=== PATIENT | male | born 1970 | race African-American/Black ===

== ENCOUNTER 2019-04-12 15:13 | Inpatient (IN) | payer OTHER ==
[2019-04-12 18:19] VITALS: BMI 24.5
--- NOTE | 2019-04-12 20:35 | HP ---
CIWA Score Nausea/Vomitin Muscle Tremors: 4-Moderate,w/Arms Extend Anxiety: 1-Mildly Anxious Agitation: 4-Moderately Restless Paroxysmal Sweats: 3 (Increased facial mositure) Orientation: 1-Uncertain about Date Tacttile Disturbances: 0-None Auditory Disturbances: 0-None Visual Disturbances: 0-None Headache: 2-Mild CIWA-Ar Total Score: 18 - Admission Criteria OASAS Guidelines: Admission for Medically Managed Detox: Requires at least one of the followin. CIWA greater than 12 2. Seizures within the past 24 hours 3. Delirium tremens within the past 24 hours 4. Hallucinations within the past 24 hours 5. Acute intervention needed for co occurring medical disorder 6. Acute intervention needed for co occurring psychiatric disorder 7. Severe withdrawal that cannot be handled at a lower level of care (continued vomiting, continued diarrhea, abnormal vital signs) requiring intravenous medication and/or fluids 8. Patient presents the following: CIWA greater than 12 Admission Criteria Met: Admission criteria met Admitting History and Physical - Smoking History Smoking history: Current every day smoker Have you smoked in the past 12 months: Yes Aproximately how many cigarettes per day: 20 - Alcohol/Substance Use Hx Alcohol Use: Yes Admission ROS S - [facility] Chief Complaint: "I need detox for alcohol and other drugs I'm withdrawing from" Allergies/Adverse Reactions: Allergies Allergy/AdvReac Type Severity Reaction Status Date / Time pork derived (porcine) Allergy Mild Vomiting Verified 04/12/19 18:07 No Known Drug Allergies Allergy Verified 04/12/19 18:07 NKDA Allergy Uncoded 04/12/19 18:07 History of Present Illness: 49 yo presents w/ alcohol withdrawal symptoms seeking detox. Interested in rehab Longest sobriety [id number]. Heroin use since age 19. Was on Suboxone and relapsed in December. Last used on . Started back on Suboxone Program. Current use 8 mg TID. last used 04/11/19. Outsole Caser is Cindy. [facility]. Alcohol use since age 12. 3-4 24 oz cans beer every night and 1 pint liquor every 1-2 days. Last drink this a.m. Nicotine use since age 12. Smokes 5-10 cig/day. Hx: 2 overdoses. Last 1 1/2 yrs ago. Last blackout 02/2019. Denies hx seizures. PMHx: Picks skin; Arthritis (L) foot; Migraine SHEIKH; MHHx: Depression, Anxiety; Bipolar; Schizoaffective. Taking meds. Sees a MH Provider. Last saw MH Provider 1 week ago. Denies thoughts of harming self or others. SHx: DESTIN- SRO; Unemployed. Legal issues (Family law). Has a Probation Office. Patient Name: Johnnie Clay Date: 1970 Address: [address] [place] [address] Sex: Male Rx Written Rx Dispensed Drug Quantity Days Supply Prescriber Name 12/25/2018 12/26/2018 suboxone 8 mg-2 mg sl film 45 15 Markell Isaac) 12/06/2018 12/11/2018 suboxone 8 mg-2 mg sl film 24 8 Markell Isaac) Patient Name: Johnnie Clay Date: 1970 Address: [address] [place] [address] Sex: Male Rx Written Rx Dispensed Drug Quantity Days Supply Prescriber Name 11/22/2018 11/22/2018 buprenorphine-naloxone 8-2 mg sl film 45 15 Markell Isaac) 10/05/2018 10/05/2018 buprenorphine-naloxone 8-2 mg sl film 90 30 Markell Isaac) Patient Name: Johnnie Clay Date: 1970 Address: [address] [place] [id number] Sex: Male Rx Written Rx Dispensed Drug Quantity Days Supply Prescriber Name 11/09/2018 11/09/2018 buprenorphine-naloxone 8-2 mg sl film 15 5 Lakshmi Milner Patient Name: Johnnie Clay Date: 1970 Address: [address] [place] [id number] Sex: Male Rx Written Rx Dispensed Drug Quantity Days Supply Prescriber Name 09/05/2018 09/05/2018 buprenorphine-naloxone 8-2 mg sl film 90 30 Hossny, Juani 08/07/2018 08/09/2018 suboxone 8 mg-2 mg sl film 90 30 Hossny, Juani Patient Name: Johnnie Clay Date: 1970 Address: [address] [place] [id number] Sex: Male Rx Written Rx Dispensed Drug Quantity Days Supply Prescriber Name 07/09/2018 07/10/2018 suboxone 8 mg-2 mg sl film 90 30 Hossny, Juani 06/05/2018 06/05/2018 suboxone 8 mg-2 mg sl film 90 30 Hossny, Juani Search Terms: Johnnie Clay, 1970 Search Date: 04/12/2019 08:29:43 PM States Searched: [place], [place], [place], [place], [place], [place], [place], [place] The Drug Utilization Report below displays the controlled substance prescriptions, if any, that were dispensed in the indicated state(s). The information displayed on this report is compiled from requests submitted to other states' PMPs, and accurately reflects the information as returned by them. Blank palacios indicate data not provided by other state. This report was requested by: Roxanna Dial | Reference #: [id number] There are no results for the search terms that you entered. Exam Limitations: No Limitations - Ebola screening Have you traveled outside of the country in the last 21 days: No Have you had contact with anyone from an Ebola affected area: No Have you been sick,other than usual withdrawal symptoms: No Do you have a fever: No - Review of Systems Constitutional: Chills, Diaphoresis, Changes in sleep (Difficulty falling and staying asleep), Unintentional Wgt. Loss EENT: reports: Blurred Vision, Other (Jaw pain (L) mandible x 2 days un related to trauma) Respiratory: reports: Shortness of Breath (r/t withdrawals) Cardiac: reports: No Symptoms Reported GI: reports: Blood Streaked Bowels (Blood streaked bowels 2-3 x/wk. States r/t straining.), Constipated (Intermittent constipation), Diarrhea ([place] w/ streaks of blood earlier), Nausea (earlier), Vomiting (earlier) : reports: Urgency (Urinary urge), Other (Dribble) Musculoskeletal: reports: Back Pain (none at this time) Integumentary: reports: Lesions ( Picks skin most of life resulting in open sores) Neuro: reports: Headache (Frontal pressure headache), Tremors Endocrine: reports: Increased Thirst Hematology: reports: No Symptoms Reported Psychiatric: reports: Mood/Affect Appropiate, Orientated x3 (Missed by 1 day), Anxious, Depressed Patient History - Patient Medical History Hx Anemia: Yes (NOT IN TREATMENT) Hx Asthma: No Hx Chronic Obstructive Pulmonary Disease (COPD): No Hx Cancer: No Hx Cardiac Disorders: No Hx Congestive Heart Failure: No Hx Hypertension: No Hx Hypercholesterolemia: No Hx Pacemaker: No HX Cerebrovascular Accident: No Hx Seizures: No Hx Dementia: No Hx Diabetes: No Hx Gastrointestinal Disorders: Yes (ACID REFLUX..NEXIUM) Hx Liver Disease: No Hx Genitourinary Disorders: No Hx Sexually Transmitted Disorders: No Hx Renal Disease (ESRD): No Hx Thyroid Disease: No Hx Human Immunodeficiency Virus (HIV): No (NEGATIVE HX) Hx Hepatitis C: No Hx Depression: Yes (ON WELBUTRIN AND TRAZODONE) Hx Suicide Attempt: No (DENIES) Hx Bipolar Disorder: No Hx Schizophrenia: Yes (schizoaffective) - Patient Surgical History Past Surgical History: No Hx Neurologic Surgery: No Hx Cataract Extraction: No Hx Cardiac Surgery: No Hx Lung Surgery: No Hx Breast Surgery: No Hx Breast Biopsy: No Hx Abdominal Surgery: No Hx Appendectomy: No Hx Cholecystectomy: No Hx Genitourinary Surgery: No Hx Section: No Hx Orthopedic Surgery: No Anesthesia Reaction: No - PPD History Previous Implant?: Yes Documented Results: Negative w/proof Implanted On Prior R Admission?: Yes Date: 08/27/14 Results: 0 mm PPD to be Administered?: No - Smoking Cessation Smoking history: Current every day smoker Have you smoked in the past 12 months: Yes Aproximately how many cigarettes per day: 10 Hx Chewing Tobacco Use: No Initiated information on smoking cessation: Yes 'Breaking Loose' booklet given: 04/12/19 - Substance & Tx. History Hx Alcohol Use: Yes Hx Substance Use: Yes Substance Use Type: Alcohol, Cocaine, Heroin, Opiates Hx Substance Use Treatment: Yes (detox, rehab, Suboxone) - Substances abused Heroin Substance route: Injection Frequency: Daily Amount used: 1 to 1 and a half bundles Age of first use: 19 Date of last use: 04/07/19 Alcohol Substance route: Oral Amount used: 4 of 24 oz of beer/ 1 to i and a half pint of gin/vodka/whisky Age of first use: 12 Date of last use: 04/12/19 Cocaine Substance route: Inhalation Frequency: 3-6 times per week Amount used: ten to 20 dime bags Age of first use: 16 Date of last use: 04/11/19 Other Other (specify): Percocet. Substance route: Oral Frequency: 1-2 times per week Amount used: 2 tablets Age of first use: 39 Date of last use: 04/06/19 Admission Physical Exam [facility] - Vital Signs Vital Signs: Vital Signs - 24 hr 04/12/19 18:07 Temperature 97.6 F Pulse Rate 76 Respiratory 16 Rate Blood Pressure 135/84 - Physical General Appearance: Yes: Nourished, Mild Distress, Tremorous, Sweating ( Increased facial mositure) HEENTM: Yes: EOMI, Hearing grossly Normal, Normocephalic, Normal Voice, HENNY, Pharynx Normal Respiratory: Yes: Lungs Clear (Pulse Ox = 98 %), Normal Breath Sounds, No Respiratory Distress Neck: Yes: No masses,lesions,Nodules, Supple Breast: Yes: Breast Exam Deferred Cardiology: Yes: Regular Rhythm, Regular Rate, S1, S2 Abdominal: Yes: Flat, Soft, Increased Bowel Sounds, Tenderness (Mid-quad tenderness upon palpation. No guarding. No-rebound tenderness.) Genitourinary: Yes: Within Normal Limits Back: Yes: Normal Inspection Musculoskeletal: Yes: full range of Motion, Gait Steady Extremities: Yes: Normal Capillary Refill (Peripheral pulses +), Tremors Neurological: Yes: precinct police captain II-XII NML intact, Alert, Motor Strength 5/5, Normal Response Integumentary: Yes: Normal Color, Warm, Diaphoresis (Increased facial mositure) , Rash (dry, cracked, flaky skin between toes), Other (Old and new scratched lesions scattered over entire body. Fresher lesions noted on (R)and (L) shoulder, forehead, and (R) calf.) Lymphatic: Yes: Within Normal Limits - Diagnostic (1) Opioid dependence on agonist therapy Current Visit: Yes Status: Chronic Comment: On Suboxone (2) Alcohol dependence with withdrawal, uncomplicated Current Visit: Yes Status: Acute (3) Cocaine dependence, uncomplicated Current Visit: Yes Status: Chronic (4) Dermatillomania Current Visit: Yes Status: Chronic Comment: With multiple old and new skin lesions (5) GERD (gastroesophageal reflux disease) Current Visit: Yes Status: Chronic Qualifiers: Esophagitis presence: esophagitis presence not specified Qualified Code(s) : K21.9 - Gastro-esophageal reflux disease without esophagitis (6) Nicotine dependence Current Visit: Yes Status: Chronic Qualifiers: Nicotine product type: cigarettes Substance use status: uncomplicated Qualified Code(s): F17.210 - Nicotine dependence, cigarettes, uncomplicated Cleared for Admission BHS - Detox or Rehab S Level of Care: Medically Managed Detox Regimen/Protocol: Librium Claeared for Rehab Admission: No Breathalyzer - Breathalyzer Breathalyzer: 0 Urine Drug Screen - Test Device Lot number: [id number] Expiration date: 11/23/20 - Control Is test valid?: Yes - Results Drug screen NEGATIVE: Yes Urine drug screen results: BZO-Benzodiazepines, BUP-Suboxone Inpatient Rehab Admission - Rehab Decision to Admit Inpatient rehab admission?: No
[2019-04-12] MEDS ORDERED: METHOCARBAMOL 500 MG TABLET PO PRN (21:16)
[2019-04-12] MEDS ORDERED: MAGNESIUM HYDROX 2400MG/30ML ORAL SUSPENSION 30 ML CUP PO PRN (21:16)
[2019-04-12] MEDS ORDERED: MENTHOL/PHENOL 1 EACH UD MM PRN (21:16)
[2019-04-12] MEDS ORDERED: IBUPROFEN 400 MG TABLET (FP) PO PRN (21:16)
[2019-04-12] MEDS ORDERED: ACETAMINOPHEN 325 MG TABLET (FP) PO PRN ×2 (21:16)
[2019-04-12] MEDS ORDERED: chlordiazePOXIDE HCL 10 MG CAPSULE PO PRN (21:16)
[2019-04-12] MEDS ORDERED: NICOTINE POLACRILEX 2 MG GUM BUC PRN (21:16)
[2019-04-12] MEDS ORDERED: MAGNESIUM CITRATE 300 ML BOTTLE PO PRN (21:16)
[2019-04-12] MEDS ORDERED: MAG HYDROX/AL HYDROX/SIMETH 30 ML UNIT-DOSE CUP PO PRN (21:16)
[2019-04-12] MEDS ORDERED: BISMUTH SUBSALICYLATE 524 MG/30 ML UD PO PRN (21:16)
[2019-04-12] MEDS: TOLNAFTATE 1% CREAM 15 GM TUBE TP SCH (22:44)
[2019-04-12] MEDS: THIAMINE HCL 100 MG TABLET (FP) PO SCH (22:47)
[2019-04-12] MEDS: chlordiazePOXIDE HCL 25 MG CAPSULE PO SCH (22:47)
[2019-04-12] MEDS: MELATONIN 5 MG TABLETS PO PRN (22:47)
[2019-04-12] MEDS: BACITRACIN 15 GM TUBE TOPICAL OINTMENT TP SCH (22:50)
[2019-04-13] MEDS: BUPRENORPHINE/NALOXONE 8 MG/2 MG FILM PACKET SL SCH ×3 (05:26→22:08)
[2019-04-13] MEDS: chlordiazePOXIDE HCL 25 MG CAPSULE PO SCH ×3 (05:26→22:07)
[2019-04-13 10:16] LABS: ALBUMIN 3.6 g/dl (3.4-5.0); BILIRUBIN,TOTAL 0.3 mg/dL (0.2-1); BLOOD UREA NITROGEN 10.6 mg/dL (7-18); CALCIUM 8.4 mg/dL (8.5-10.1); POTASSIUM 3.9 mmol/L (3.5-5.1); TOT PROT 6.6 g/dl (6.4-8.2)
[2019-04-13] MEDS: TOLNAFTATE 1% CREAM 15 GM TUBE TP SCH ×2 (10:30→22:08)
[2019-04-13] MEDS: PRENATAL VITAMINS W/ FOLIC ACID TABLET (FP) PO SCH (10:31)
[2019-04-13] MEDS: NICOTINE 14 MG/24 HOURS TOPICAL PATCH TD SCH (10:32)
[2019-04-13] MEDS: BACITRACIN 15 GM TUBE TOPICAL OINTMENT TP SCH ×2 (10:33→22:08)
[2019-04-13 10:39] LABS: HEMATOCRIT 37.2 % (35.4-49); HEMOGLOBIN 12.9 GM/dL (11.7-16.9); MCH 33.3 pg (25.7-33.7); MCHC 34.5 g/dl (32.0-35.9); MEAN CELL VOLUME 96.2 fl (80-96); MEAN PLT VOLUME 8.1 fl (7.5-11.1); PLATELET COUNT 214 K/MM3 (134-434); RBC 3.87 M/mm3 (4.00-5.60); RDW 14.2 % (11.9-15.9); WHITE BLOOD COUNT 4.8 K/mm3 (4.0-10.0)
--- NOTE | 2019-04-13 11:31 | PN ---
S CIWA - CIWA Score Nausea/Vomitin-No Nausea/No Vomiting Muscle Tremors: None Anxiety: 3 Agitation: 2 Paroxysmal Sweats: 3 Orientation: 0-Oriented Tacttile Disturbances: 0-None Auditory Disturbances: 0-None Visual Disturbances: 0-None Headache: 2-Mild CIWA-Ar Total Score: 10 S Progress Note (SOAP) Subjective: c/o anxiety, sweats, headache, and muscle pain. Objective: 04/13/19 11:28 Vital Signs 04/13/19 06:00 Temperature 97.7 F Pulse Rate 66 Respiratory 18 Rate Blood Pressure 105/55 L Lab Results WBC 4.8 K/mm3 (4.0-10.0) 04/13/19 08:00 RBC 3.87 M/mm3 (4.00-5.60) L 04/13/19 08:00 Hgb 12.9 GM/dL (11.7-16.9) 04/13/19 08:00 Hct 37.2 % (35.4-49) 04/13/19 08:00 MCV 96.2 fl (80-96) H 04/13/19 08:00 MCHC 34.5 g/dl (32.0-35.9) 04/13/19 08:00 RDW 14.2 % (11.9-15.9) 04/13/19 08:00 Plt Count 214 K/MM3 (134-434) 04/13/19 08:00 Sodium 141 mmol/L (136-145) 04/13/19 08:00 Potassium 3.9 mmol/L (3.5-5.1) 04/13/19 08:00 Chloride 105 mmol/L (98-107) 04/13/19 08:00 Carbon Dioxide 30 mmol/L (21-32) 04/13/19 08:00 Anion Gap 7 MMOL/L (8-16) L 04/13/19 08:00 BUN 10.6 mg/dL (7-18) 04/13/19 08:00 Creatinine 1.0 mg/dL (0.55-1.3) 04/13/19 08:00 Random Glucose 90 mg/dL (74-106) 04/13/19 08:00 Calcium 8.4 mg/dL (8.5-10.1) L 04/13/19 08:00 Labs noted. Assessment: 04/13/19 11:29 AOX3, in no acute respiratory distress. Full ROM, ambulating in the unit. Withdrawal symptoms. Plan: continue detox.
--- NOTE | 2019-04-13 15:42 | CONSULT ---
[facility] Psychiatric Consult - Data Date of interview: 04/13/19 Admission source: [facility] Identifying data: Readmission to [facility] for this 49 y/o AA male self- referred for detoxification. ROSANNA issues : heroin, alcohol, nicotine. Interviewed at [address] [place] [address]., Patient is , a father of two, domiciled (SRO), unemployed and supported on welfare. Substance Abuse History: Smoking history: Current every day smoker. Have you smoked in the past 12 months: Yes. Aproximately how many cigarettes per day: 10. Hx Chewing Tobacco Use: No. Initiated information on smoking cessation: Yes. 'Breaking Loose' booklet given: 04/12/19. - Substance & Tx. History. Hx Alcohol Use: Yes. Hx Substance Use: Yes. Substance Use Type: Alcohol, Cocaine , Heroin, Opiates. Hx Substance Use Treatment: Yes (detox, rehab, Suboxone). - Substances abused. Heroin. Substance route: Injection. Frequency: Daily. Amount used: 1 to 1 and a half bundles. Age of first use: 19. Date of last use: 04/07/19. Alcohol. Substance route: Oral. Amount used: 4 of 24 oz of beer/ 1 to i and a half pint of gin/vodka/whisky. Age of first use: 12. Date of last use: 04/12/19. Cocaine. Substance route: Inhalation. Frequency: 3-6 times per week. Amount used: ten to 20 dime bags. Age of first use: 16. Date of last use: 04/11/19. Other. Other (specify): Percocet. Substance route: Oral. Frequency: 1-2 times per week. Amount used: 2 tablets. Age of first use: 39. Date of last use: 04/06/19 Medical History: Remarkable for GERD and anemia. Psychiatric History: Patient endorses a history of one psychiatric hospitalization in 1990 (while incarcerated). Reportedly diagnosed with Schizoaffective Disorder. Mr Clay is currently receiving psyciatric OPD care at the [facility] in [facility]. He indicates maintenance on a regimen of suboxone + depakote + sertraline. Patient denies history of suicide attempts. Physical/Sexual Abuse/Trauma History: Traumas : years of incarceration, of a younger brother (years ago), divorce and discord with ex- over personal matters. Additional Comment: Urine drug screen results: BZO-Benzodiazepines, BUP- Suboxone. Noted. Mental Status Exam - Mental Status Exam Alert and Oriented to: Time, Place, Person Cognitive Function: Good Patient Appearance: Well Groomed (covered with tattoos, needle tracks on forearms, facial abrasions, scabs; muscular built) Mood: Withdrawn, Anxious Affect: Mood Congruent, Constricted Patient Behavior: Fatigued Speech Pattern: Clear Voice Loudness: Normal Thought Process: Goal Oriented Thought Disorder: Not Present Hallucinations: Denies Suicidal Ideation: Denies Homicidal Ideation: Denies Insight/Judgement: Poor Sleep: Fair Appetite: Good Muscle strength/Tone: Normal Gait/Station: Normal Psychiatric Findings - Problem List ([place] 1, 2,3) (1) Alcohol dependence with withdrawal, uncomplicated Status: Acute (2) Cocaine dependence, uncomplicated Status: Chronic (3) Opioid dependence on agonist therapy Status: Chronic Comment: On Suboxone (4) Nicotine dependence Status: Chronic (5) Schizoaffective disorder Status: Chronic (6) Substance induced mood disorder Status: Chronic - Initial Treatment Plan Initial Treatment Plan: Psychoeducation. Sleep hygiene. Detoxification. AA/NA meetings. Medications : depakote 500 mg po bid + zoloft 100 mg po daily. Side effects/benefits of both drugs are discussed with the patient. Mr Clay is agreeable with this plan of care. Observation. Valproic acid level : pending.
[2019-04-13] MEDS: DIVALPROEX SODIUM 500 MG TABLET E.C. PO SCH (22:07)
[2019-04-13] MEDS: THIAMINE HCL 100 MG TABLET (FP) PO SCH (22:08)
[2019-04-13] MEDS: MELATONIN 5 MG TABLETS PO PRN (22:08)
[2019-04-14] MEDS: BUPRENORPHINE/NALOXONE 8 MG/2 MG FILM PACKET SL SCH ×3 (05:37→21:51)
[2019-04-14] MEDS: chlordiazePOXIDE 5 MG CAPSULE PO SCH ×3 (05:37→21:51)
[2019-04-14] MEDS: SERTRALINE HCL 50 MG TABLET (FP) PO SCH (10:12)
[2019-04-14] MEDS: DIVALPROEX SODIUM 500 MG TABLET E.C. PO SCH ×2 (10:12→21:51)
[2019-04-14] MEDS: PRENATAL VITAMINS W/ FOLIC ACID TABLET (FP) PO SCH (10:13)
[2019-04-14] MEDS: TOLNAFTATE 1% CREAM 15 GM TUBE TP SCH ×2 (10:13→21:52)
[2019-04-14] MEDS: NICOTINE 14 MG/24 HOURS TOPICAL PATCH TD SCH (10:15)
[2019-04-14] MEDS ORDERED: ONDANSETRON *ODT* 4 MG TABLET SL PRN (10:27)
[2019-04-14] MEDS: BACITRACIN 15 GM TUBE TOPICAL OINTMENT TP SCH ×2 (10:30→21:52)
[2019-04-14] MEDS: HYDROCORTISONE 1% TOPICAL CREAM 30 GM TUBE TP SCH ×2 (11:30→21:52)
--- NOTE | 2019-04-14 13:05 | PN ---
[facility] CIWA - CIWA Score Nausea/Vomitin-Mild Nausea/No Vomiting Muscle Tremors: 2 Anxiety: 2 Agitation: 2 Paroxysmal Sweats: 2 Orientation: 0-Oriented Tacttile Disturbances: 0-None Auditory Disturbances: 0-None Visual Disturbances: 0-None Headache: 0-None Present CIWA-Ar Total Score: 9 BHS Progress Note (SOAP) Subjective: Headache, chills, tremor, interrupted sleep, nausea. Patient c/o itchy skin which he picks at whenever he is anxious. Patient requesting cream for itchy skin and medication for nausea. Objective: 04/14/19 13:03 Last Vital Signs Temp Pulse Resp BP Pulse Ox 99.3 F 65 16 115/78 04/14/19 09:34 04/14/19 09:34 04/14/19 09:34 04/14/19 09:34 Laboratory Tests 04/13/19 04/13/19 04/13/19 08:00 08:00 08:00 WBC 4.8 RBC 3.87 L Hgb 12.9 Hct 37.2 MCV 96.2 H MCH 33.3 MCHC 34.5 RDW 14.2 Plt Count 214 MPV 8.1 Sodium 141 Potassium 3.9 Chloride 105 Carbon Dioxide 30 Anion Gap 7 L BUN 10.6 Creatinine 1.0 Est GFR (CKD-EPI)AfAm 101.26 Est GFR (CKD-EPI)NonAf 87.37 Random Glucose 90 Calcium 8.4 L Total Bilirubin 0.3 AST 25 ALT 40 Alkaline Phosphatase 97 Total Protein 6.6 Albumin 3.6 Valproic Acid 21.8 L RPR Titer 04/13/19 08:00 WBC RBC Hgb Hct MCV MCH MCHC RDW Plt Count MPV Sodium Potassium Chloride Carbon Dioxide Anion Gap BUN Creatinine Est GFR (CKD-EPI)AfAm Est GFR (CKD-EPI)NonAf Random Glucose Calcium Total Bilirubin AST ALT Alkaline Phosphatase Total Protein Albumin Valproic Acid RPR Titer Nonreactive Labs reviewed Assessment: 04/14/19 13:04 Withdrawal sxs Plan: Continue detox Encouraged PO water intake Dermatitis: (itchy skin and scar from pricking skin), hydrocortisone cream bid Nausea: zofran 4mg SL q8 hr prn
[2019-04-14] MEDS: THIAMINE HCL 100 MG TABLET (FP) PO SCH (21:51)
[2019-04-15] MEDS ORDERED: chlordiazePOXIDE HCL 10 MG CAPSULE PO PRN
[2019-04-15] MEDS: BUPRENORPHINE/NALOXONE 8 MG/2 MG FILM PACKET SL SCH ×3 (05:59→22:53)
[2019-04-15] MEDS: chlordiazePOXIDE HCL 10 MG CAPSULE PO SCH ×3 (05:59→21:52)
[2019-04-15] MEDS ORDERED: diphenhydrAMINE HCL 25 MG CAPSULE (FP) PO PRN (09:56)
[2019-04-15] MEDS: SERTRALINE HCL 50 MG TABLET (FP) PO SCH (10:42)
[2019-04-15] MEDS: DIVALPROEX SODIUM 500 MG TABLET E.C. PO SCH ×2 (10:43→22:51)
[2019-04-15] MEDS: HYDROCORTISONE 1% TOPICAL CREAM 30 GM TUBE TP SCH ×2 (10:43→22:52)
[2019-04-15] MEDS: PRENATAL VITAMINS W/ FOLIC ACID TABLET (FP) PO SCH (10:43)
[2019-04-15] MEDS: NICOTINE 14 MG/24 HOURS TOPICAL PATCH TD SCH (10:44)
[2019-04-15] MEDS: BACITRACIN 15 GM TUBE TOPICAL OINTMENT TP SCH ×2 (10:44→22:51)
[2019-04-15] MEDS: TOLNAFTATE 1% CREAM 15 GM TUBE TP SCH ×2 (10:46→22:53)
--- NOTE | 2019-04-15 11:52 | PN ---
S CIWA - CIWA Score Nausea/Vomitin-Mild Nausea/No Vomiting Muscle Tremors: 1-None Visible, but [place] Anxiety: 2 Agitation: 2 Paroxysmal Sweats: No Perspiration Orientation: 0-Oriented Tacttile Disturbances: 1-Very Mild Itch/Numbness Auditory Disturbances: 0-None Visual Disturbances: 0-None Headache: 2-Mild CIWA-Ar Total Score: 9 BHS Progress Note (SOAP) Subjective: alert,irritable,anxious,interrupted sleep,itching Objective: 04/15/19 11:52 Vital Signs Temperature 98 F 04/15/19 09:33 Pulse Rate 70 04/15/19 09:33 Respiratory Rate 18 04/15/19 09:33 Blood Pressure 131/64 04/15/19 09:33 O2 Sat by Pulse Oximetry (%) Assessment: 04/15/19 11:52 withdrawal symptom Plan: continue detox librium regimen,discharge in am,benadryl for itching
[2019-04-15] MEDS: THIAMINE HCL 100 MG TABLET (FP) PO SCH (22:51)
[2019-04-16] MEDS ORDERED: chlordiazePOXIDE HCL 10 MG CAPSULE PO ONE (05:00)
[2019-04-16] MEDS: BUPRENORPHINE/NALOXONE 8 MG/2 MG FILM PACKET SL SCH ×2 (06:50→14:53)
--- NOTE | 2019-04-16 09:25 | DS ---
[facility] Detox Discharge Summary Admission Date: 04/12/19 Discharge Date: 04/16/19 - History Present History: Alcohol Dependence, Cocaine Dependence, Opioid Dependence - Physical Exam Results Vital Signs: Vital Signs Temperature 98.1 F 04/16/19 06:26 Pulse Rate 74 04/16/19 06:26 Respiratory Rate 18 04/16/19 06:26 Blood Pressure 130/63 04/16/19 06:26 O2 Sat by Pulse Oximetry (%) Pertinent Admission Physical Exam Findings: pt arrived in withdrawals Vital Signs Temperature 98.1 F 04/16/19 06:26 Pulse Rate 74 04/16/19 06:26 Respiratory Rate 18 04/16/19 06:26 Blood Pressure 130/63 04/16/19 06:26 O2 Sat by Pulse Oximetry (%) Laboratory Tests 04/13/19 04/13/19 04/13/19 08:00 08:00 08:00 WBC 4.8 RBC 3.87 L Hgb 12.9 Hct 37.2 MCV 96.2 H MCH 33.3 MCHC 34.5 RDW 14.2 Plt Count 214 MPV 8.1 Sodium 141 Potassium 3.9 Chloride 105 Carbon Dioxide 30 Anion Gap 7 L BUN 10.6 Creatinine 1.0 Est GFR (CKD-EPI)AfAm 101.26 Est GFR (CKD-EPI)NonAf 87.37 Random Glucose 90 Calcium 8.4 L Total Bilirubin 0.3 AST 25 ALT 40 Alkaline Phosphatase 97 Total Protein 6.6 Albumin 3.6 Valproic Acid 21.8 L RPR Titer 04/13/19 08:00 WBC RBC Hgb Hct MCV MCH MCHC RDW Plt Count MPV Sodium Potassium Chloride Carbon Dioxide Anion Gap BUN Creatinine Est GFR (CKD-EPI)AfAm Est GFR (CKD-EPI)NonAf Random Glucose Calcium Total Bilirubin AST ALT Alkaline Phosphatase Total Protein Albumin Valproic Acid RPR Titer Nonreactive today pt is aaox3 ambulating no acute distress no s/s of withdrawals - Treatment Hospital Course: Detox Protocol Followed, Detoxed Safely, Responded well, Discharged Condition Good, Rehab Referral Accepted - Medication Discharge Medications: Ambulatory Orders Chlorpromazine [Thorazine -] 25 mg PO TID 04/12/19 Divalproex Sodium 1 tablet PO BID 04/12/19 Sertraline HCl 100 mg PO DAILY 04/12/19 - Diagnosis (1) Alcohol dependence with withdrawal, uncomplicated Current Visit: Yes Status: Chronic (2) Cocaine dependence, uncomplicated Current Visit: Yes Status: Chronic (3) Dermatillomania Current Visit: Yes Status: Chronic (4) GERD (gastroesophageal reflux disease) Current Visit: Yes Status: Chronic Qualifiers: Esophagitis presence: esophagitis presence not specified Qualified Code(s) : K21.9 - Gastro-esophageal reflux disease without esophagitis (5) Nicotine dependence Current Visit: Yes Status: Chronic Qualifiers: Nicotine product type: cigarettes Substance use status: uncomplicated Qualified Code(s): F17.210 - Nicotine dependence, cigarettes, uncomplicated (6) Schizoaffective disorder Current Visit: Yes Status: Chronic (7) Substance induced mood disorder Current Visit: Yes Status: Chronic (8) Cannabis dependence Current Visit: Yes Status: Chronic - AMA Did Patient Leave Against Medical Advice: No
[2019-04-16] MEDS: BACITRACIN 15 GM TUBE TOPICAL OINTMENT TP SCH (10:25)
[2019-04-16] MEDS: PRENATAL VITAMINS W/ FOLIC ACID TABLET (FP) PO SCH (11:08)
[2019-04-16] MEDS: SERTRALINE HCL 50 MG TABLET (FP) PO SCH (11:09)
[2019-04-16] MEDS: HYDROCORTISONE 1% TOPICAL CREAM 30 GM TUBE TP SCH (11:09)
[2019-04-16] MEDS: DIVALPROEX SODIUM 500 MG TABLET E.C. PO SCH (11:09)
[2019-04-16] MEDS: TOLNAFTATE 1% CREAM 15 GM TUBE TP SCH (11:10)
[2019-04-16] MEDS: NICOTINE 14 MG/24 HOURS TOPICAL PATCH TD SCH (11:10)
--- NOTE | 2019-04-16 13:35 | EKG ---
Test Reason : Blood Pressure : / mmHG Vent. Rate : 064 BPM Atrial Rate : 064 BPM P-R Int : 122 ms QRS Dur : 090 ms QT Int : 424 ms P-R-T Axes : 080 073 049 degrees QTc Int : 437 ms NORMAL SINUS RHYTHM NORMAL ECG NO PREVIOUS ECGS AVAILABLE Confirmed by MD Kami, Kings ([id number]) on 04/16/2019 1:34:49 PM Referred By: Confirmed By:Kings Mcclure MD
[2019-04-16 17:33] VITALS: BP 124/67; PULSE 74; TEMP 98.4
== END 2019-04-16 17:26 | disposition other institution (70) | DRG 773 ==
LOC: YASAS 15:13 → Y6N 21:36
PROVIDERS: ADMIT Allergy & Immunology; ATTEND Allergy & Immunology
PROC: HZ2ZZZZ Detoxification Services for Substance Abuse Treatment (ICD-10-PCS; principal; 2019-04-12)
DX: F10.230 Alcohol dependence with withdrawal, uncomplicated (principal); F11.20 Opioid dependence, uncomplicated; F14.20 Cocaine dependence, uncomplicated; F12.20 Cannabis dependence, uncomplicated; F17.210 Nicotine dependence, cigarettes, uncomplicated; F25.9 Schizoaffective disorder, unspecified; F19.24 Other psychoactive substance dependence with psychoactive substance-induced mood disorder; F42.4 Excoriation (skin-picking) disorder; K21.9 Gastro-esophageal reflux disease without esophagitis; Z91.018 Allergy to other foods; Z91.048 Other nonmedicinal substance allergy status
CPT/HCPCS: 36415; 80053; 80164; 85027; 86593; 93005; 93010

== ENCOUNTER 2019-04-16 17:51 | Inpatient (IN) | payer OTHER ==
[2019-04-16] MEDS ORDERED: P-EPHED 60MG/TRIPROLIDI 2.5MG TABLET PO PRN (18:57)
[2019-04-16] MEDS ORDERED: IBUPROFEN 400 MG TABLET (FP) PO PRN (18:57)
[2019-04-16] MEDS ORDERED: MAG HYDROX/AL HYDROX/SIMETH 30 ML UNIT-DOSE CUP PO PRN (18:57)
[2019-04-16] MEDS ORDERED: ACETAMINOPHEN 325 MG TABLET (FP) PO PRN (18:57)
[2019-04-16] MEDS ORDERED: MENTHOL/PHENOL 1 EACH UD MM PRN (18:57)
[2019-04-16] MEDS ORDERED: guaiFENesin 200 MG/10 ML 10 ML UNIT-DOSE CUPS PO PRN (18:57)
[2019-04-16] MEDS ORDERED: MAGNESIUM CITRATE 300 ML BOTTLE PO PRN (18:57)
[2019-04-16] MEDS ORDERED: MAGNESIUM HYDROX 2400MG/30ML ORAL SUSPENSION 30 ML CUP PO PRN (18:57)
[2019-04-16] MEDS: diphenhydrAMINE HCL 25 MG CAPSULE (FP) PO PRN (22:02)
[2019-04-16] MEDS: BACITRACIN 15 GM TUBE TOPICAL OINTMENT TP SCH (22:03)
[2019-04-16] MEDS: THIAMINE HCL 100 MG TABLET (FP) PO SCH (22:04)
[2019-04-16] MEDS: MELATONIN 5 MG TABLETS PO PRN (22:04)
[2019-04-17] MEDS: PRENATAL VITAMINS W/ FOLIC ACID TABLET (FP) PO SCH (10:22)
[2019-04-17] MEDS: diphenhydrAMINE HCL 25 MG CAPSULE (FP) PO PRN (10:22)
[2019-04-17] MEDS: BACITRACIN 15 GM TUBE TOPICAL OINTMENT TP SCH ×2 (10:22→21:32)
[2019-04-17] MEDS ORDERED: COLLOIDAL OATMEAL 1 BAR EACH TP PRN (11:55)
--- NOTE | 2019-04-17 13:24 | HP ---
[facility] Rehab Assess/Revision - Admission History Ad[facility] to Rehab [facility] Date of Admission to Rehab: 04/16/19 - Vital signs Vital Signs: Vital Signs Period Temp Pulse Resp BP Sys/Mejia Pulse Ox Last 24 Hr 97.9 F 74 18-18 119/78 - Findings Detox History & Physical reviewed: Yes Concur with findings: Yes Comments/Additional Findings: Currently use 8 mg TID. last used 04/16/19 on [facility]. Pt's Real Estate Legal Secretary [facility] (Information obtained from detox admission H/P). PMHx: States he Picks skin-with generalized open lesions in healing stages-Dermatillomania; Arthritis (L) foot; Migraine SHEIKH. MHHx: Depression, Anxiety; Bipolar; Schizoaffective. Taking meds. Sees a MH Provider. Last saw MH Provider 1 week ago. Denies thoughts of harming self or others. SHx : DESTIN- SRO; Unemployed. Legal issues (Family law). Has a Probation Office. Inpatient Rehab Admission - Rehab Decision to Admit Inpatient rehab admission?: Yes - Initial Determination Are CD services needed?: Yes Free of communicable disease: Yes Not in need of hospitalization: Yes - Rehab Admission Criteria Previous failed treatment: Yes Poor recovery environment: Yes Comorbidities: Yes Lacks judgement: Yes Patient is meeting Inpatient Rehab admission criteria:: Yes
[2019-04-17] MEDS: BUPRENORPHINE/NALOXONE 8 MG/2 MG FILM PACKET SL SCH ×2 (14:30→21:32)
[2019-04-17] MEDS: THIAMINE HCL 100 MG TABLET (FP) PO SCH (21:32)
[2019-04-17] MEDS: MELATONIN 5 MG TABLETS PO PRN (21:34)
[2019-04-18] MEDS: BUPRENORPHINE/NALOXONE 8 MG/2 MG FILM PACKET SL SCH ×3 (06:16→21:38)
[2019-04-18] MEDS: PRENATAL VITAMINS W/ FOLIC ACID TABLET (FP) PO SCH (10:17)
[2019-04-18] MEDS: BACITRACIN 15 GM TUBE TOPICAL OINTMENT TP SCH ×2 (10:19→21:37)
[2019-04-18] MEDS: DOCUSATE SODIUM 100 MG CAPSULE (FP) PO SCH ×2 (14:44→21:38)
[2019-04-18] MEDS: CALAMINE 8% TOPICAL LOTION 177 ML BOTTLE TP PRN (14:46)
[2019-04-18] MEDS: diphenhydrAMINE HCL 25 MG CAPSULE (FP) PO PRN (21:38)
[2019-04-18] MEDS: THIAMINE HCL 100 MG TABLET (FP) PO SCH (21:38)
[2019-04-19] MEDS: DOCUSATE SODIUM 100 MG CAPSULE (FP) PO SCH ×3 (06:20→21:46)
[2019-04-19] MEDS: BUPRENORPHINE/NALOXONE 8 MG/2 MG FILM PACKET SL SCH ×3 (06:21→21:50)
[2019-04-19] MEDS: PRENATAL VITAMINS W/ FOLIC ACID TABLET (FP) PO SCH (10:25)
[2019-04-19] MEDS: BACITRACIN 15 GM TUBE TOPICAL OINTMENT TP SCH ×2 (10:26→21:47)
[2019-04-19] MEDS: CALAMINE 8% TOPICAL LOTION 177 ML BOTTLE TP PRN (10:26)
--- NOTE | 2019-04-19 11:00 | CONSULT ---
[facility] Psychiatric Consult - Data Date of interview: 04/19/19 Admission source: 6N Identifying data: Patient is a 49 years old Black male, father of 2 children, unemployed receiving public assistance, living in an SRO admitted from detox on 04/16/19 to address alcohol, opioid and cocaine use Substance Abuse History: Reports history of alcohol, heroin, percocet and cocaine use. Refer to addiction counselor's summary for further information Medical History: Significant for anemia, GERD, migraine headache, arthritisleft foot. Patient is on Suboxone 8 mg/2 mg po TID from [facility]. Smokes cigarettes 1 ppd Psychiatric History: Patient reports that his first psychiatric contact occured [place] in [facility] [place] 1990 when he was admitted to [facility] after receiving news of his younger brothers being murdered. He was diagnosed with Schizoaffective Disorder and prescribed psychotropic medications. Reports a subsequent hospitalization at [facility]. Reports that he currently receives outpatient psychiatric treatment at the [facility] and he is prescribed Depakote 500 mg/bid, Zoloft 100 mg/day and another medication(claims he brought medications with him). Patient was seen by Dr Castrejon on 04/13/19 while in detox and he was prescribed continued on Depakote and Zoloft. Patient denies history of suicide attempts. At present, denies experiencing psychotic, manic or depressive symptoms, S/H ideations. However, reports feeling very irritated, sahra and sleeping poorly Physical/Sexual Abuse/Trauma History: years of incarceration, of a younger brother (years ago), divorce and discord with ex- over personal matters. Mental Status Exam - Mental Status Exam Alert and Oriented to: Time, Place, Person Cognitive Function: Fair Patient Appearance: Well Groomed Mood: Irritable Affect: Appropriate Speech Pattern: Clear Voice Loudness: Normal Thought Process: Intact Thought Disorder: Not Present Hallucinations: Denies Suicidal Ideation: Denies Homicidal Ideation: Denies Insight/Judgement: Fair Sleep: Poorly Appetite: Good Muscle strength/Tone: Normal Gait/Station: Normal Psychiatric Findings - Problem List ([place] 1, 2,3) (1) Schizoaffective disorder Current Visit: No Status: Chronic (2) Substance induced mood disorder Current Visit: No Status: Acute (3) Substance-induced sleep disorder Current Visit: Yes Status: Acute (4) Alcohol dependence Current Visit: Yes Status: Acute (5) Cocaine dependence Current Visit: Yes Status: Acute (6) Opioid dependence on agonist therapy Current Visit: Yes Status: Chronic (7) Nicotine dependence Current Visit: No Status: Chronic Qualifiers: Nicotine product type: cigarettes Substance use status: uncomplicated Qualified Code(s): F17.210 - Nicotine dependence, cigarettes, uncomplicated (8) GERD (gastroesophageal reflux disease) Current Visit: No Status: Chronic Qualifiers: Esophagitis presence: esophagitis presence not specified Qualified Code(s) : K21.9 - Gastro-esophageal reflux disease without esophagitis (9) Anemia Current Visit: Yes Status: Resolved (10) Migraine Current Visit: Yes Status: Chronic (11) Arthritis Current Visit: Yes Status: Chronic - Initial Treatment Plan Initial Treatment Plan: 1) Continue Depakote 500 mg po BID and Zoloft 100 mg po daily. 2) Resume Chlorpromazine 25 mg po TID(verified from bottle of medication in his property). 3) Star Belsomra 10 mg po HS prn for insomnia. 4 ) Continue inpatient rehabilitation
[2019-04-19] MEDS: SERTRALINE HCL 50 MG TABLET (FP) PO SCH (12:01)
[2019-04-19] MEDS: DIVALPROEX SODIUM 500 MG TABLET E.C. PO SCH ×2 (12:01→21:46)
--- NOTE | 2019-04-19 12:01 | PN ---
S Progress Note Note: Pt c/o itchy rash stating he needs something for athlete's feet. Also requesting culture of his wounds. Vital Signs - 24 hr 04/19/19 07:10 Temperature 98.0 F Pulse Rate 98 H Respiratory 18 Rate Blood Pressure 138/70 Skin:Multiple areas of lesions in different stages of healing. open lesions, pink granulation tissue,no drainage or pus. Old dark healed lesions, generalized throughout body. A/P Skin Picking Generalized body rash Wound culture r/o pathology. Tinactin cream apply to affected areas as directed.
[2019-04-19] MEDS: TOLNAFTATE 1% CREAM 15 GM TUBE TP SCH ×2 (12:02→21:47)
[2019-04-19] MEDS: chlorproMAZINE HCL 25 MG TABLET PO SCH ×2 (14:09→21:46)
[2019-04-19] MEDS: THIAMINE HCL 100 MG TABLET (FP) PO SCH (21:46)
[2019-04-19] MEDS: SUVOREXANT 10 MG TABLET PO PRN (21:56)
[2019-04-20] MEDS: BUPRENORPHINE/NALOXONE 8 MG/2 MG FILM PACKET SL SCH ×3 (06:15→21:13)
[2019-04-20] MEDS: chlorproMAZINE HCL 25 MG TABLET PO SCH ×3 (06:15→21:12)
[2019-04-20] MEDS: DOCUSATE SODIUM 100 MG CAPSULE (FP) PO SCH ×3 (06:15→21:10)
[2019-04-20] MEDS: BACITRACIN 15 GM TUBE TOPICAL OINTMENT TP SCH ×2 (09:55→21:10)
[2019-04-20] MEDS: SERTRALINE HCL 50 MG TABLET (FP) PO SCH (09:55)
[2019-04-20] MEDS: TOLNAFTATE 1% CREAM 15 GM TUBE TP SCH ×2 (09:55→21:15)
[2019-04-20] MEDS: PRENATAL VITAMINS W/ FOLIC ACID TABLET (FP) PO SCH (09:55)
[2019-04-20] MEDS: DIVALPROEX SODIUM 500 MG TABLET E.C. PO SCH ×2 (09:56→21:11)
[2019-04-20] MEDS: CALAMINE 8% TOPICAL LOTION 177 ML BOTTLE TP PRN (09:57)
[2019-04-20] MEDS: THIAMINE HCL 100 MG TABLET (FP) PO SCH (21:11)
[2019-04-20] MEDS: SUVOREXANT 10 MG TABLET PO PRN (21:12)
[2019-04-21] MEDS: diphenhydrAMINE HCL 25 MG CAPSULE (FP) PO PRN (02:34)
[2019-04-21] MEDS: chlorproMAZINE HCL 25 MG TABLET PO SCH ×3 (06:07→21:14)
[2019-04-21] MEDS: BUPRENORPHINE/NALOXONE 8 MG/2 MG FILM PACKET SL SCH ×3 (06:07→21:14)
[2019-04-21] MEDS: DOCUSATE SODIUM 100 MG CAPSULE (FP) PO SCH ×3 (06:07→21:17)
[2019-04-21] MEDS: BACITRACIN 15 GM TUBE TOPICAL OINTMENT TP SCH ×2 (10:12→21:17)
[2019-04-21] MEDS: SERTRALINE HCL 50 MG TABLET (FP) PO SCH (10:13)
[2019-04-21] MEDS: DIVALPROEX SODIUM 500 MG TABLET E.C. PO SCH ×2 (10:13→21:14)
[2019-04-21] MEDS: TOLNAFTATE 1% CREAM 15 GM TUBE TP SCH ×2 (10:14→21:42)
[2019-04-21] MEDS: PRENATAL VITAMINS W/ FOLIC ACID TABLET (FP) PO SCH (10:15)
[2019-04-21] MEDS: THIAMINE HCL 100 MG TABLET (FP) PO SCH (21:14)
[2019-04-21] MEDS: SUVOREXANT 10 MG TABLET PO PRN (21:17)
[2019-04-22] MEDS: CALAMINE 8% TOPICAL LOTION 177 ML BOTTLE TP PRN (01:37)
[2019-04-22] MEDS: BUPRENORPHINE/NALOXONE 8 MG/2 MG FILM PACKET SL SCH (06:28)
[2019-04-22] MEDS: chlorproMAZINE HCL 25 MG TABLET PO SCH (06:28)
[2019-04-22 07:05] VITALS: BP 129/74; PULSE 82; TEMP 98.3
[2019-04-22] MEDS: DOCUSATE SODIUM 100 MG CAPSULE (FP) PO SCH (08:37)
--- NOTE | 2019-04-22 09:34 | DS ---
[facility] Rehab Discharge Summary - [facility] Rehab Discharge Summary Admission Date: 04/16/19 Discharge Date: 04/22/19 - History Present History: Alcohol dependence, Cocaine dependence Additional Comments: Pt is a 49 y/o male with a hx of ROSANNA admitted to rehab after detox treatment. pt requesting an early discharge today to follow up with his primary care provider for medical management. Pt met with his counselor, Ms Asim Anders and has been connected to [place], [place]. Pt reports he receives Suboxone at this location and will continue after discharge today. Pertinent Past History: Arthritis Dermatollimania Skin lesions Gerd Anemia Migraines Mood disorder - Discharge Physical Exam Vital Signs: Vital Signs Temperature 98.3 F 04/22/19 07:05 Pulse Rate 82 04/22/19 07:05 Respiratory Rate 18 04/22/19 07:05 Blood Pressure 129/74 04/22/19 07:05 O2 Sat by Pulse Oximetry (%) Alert o x 3 nad oob ambulating with steady gait cardiac;s1 s2, rrr lungs:cta,sarah. abdomen:soft,+bs,nt,nd extremities/skin:no edema,full ROM, Generalized open skin lesions-head to trunk in various stages of healing. Generalized areas of dark healed spots mostly arms , trunk/abdomen and lower extremities. Pertinent Admission Physical Exam Findings: Generalized skin lesions on admission. Pt reports he had wound culture done at his primary care in [place] but "never followed up because of my mental". Pt has been reminded to follow up with result now after discharge. Pt agreed with poc. - Treatment Discharge Condition: Discharge condition good Hospital Course: Rehabilitated safely and responded well CD aftercare referral accepted. - Medication Discharge Medications: Ambulatory Orders Chlorpromazine [Thorazine -] 25 mg PO TID 04/12/19 Divalproex Sodium 1 tablet PO BID 04/12/19 Sertraline HCl 100 mg PO DAILY 04/12/19 Buprenorphine/Naloxone [Suboxone 8Mg/2Mg Sl Film -] 1 each SL TID 7 Days #21 film MDD 3 04/22/19 - Medication-Assisted Treatment (MAT) Medication-Assisted Treatment (MAT): Yes Medication Prescribed: Suboxone MAT Follow-up Referral: [facility] [address] - Discharge Instructions Diet, activity, other medical instructions: Diet:Regular Activity: oob ad filemon Other medical instructions:Follow up with CD aftercare referral at [facility] as scheduled. with PCP Dr. Babatunde Sarabia at [facility] on [address] [place], [place] within 1 week after discharge. - Diagnosis (1) Alcohol dependence Current Visit: Yes Status: Chronic Qualifiers: Substance use status: uncomplicated Qualified Code(s): F10.20 - Alcohol dependence, uncomplicated (2) Cocaine dependence Current Visit: Yes Status: Chronic Qualifiers: Substance use status: uncomplicated Qualified Code(s): F14.20 - Cocaine dependence, uncomplicated (3) Skin lesion Current Visit: Yes Status: Chronic (4) Arthritis Current Visit: Yes Status: Chronic (5) Migraine Current Visit: Yes Status: Suspected (6) Cannabis dependence Current Visit: Yes Status: Chronic (7) Dermatillomania Current Visit: Yes Status: Chronic (8) GERD (gastroesophageal reflux disease) Current Visit: Yes Status: Chronic Qualifiers: Esophagitis presence: esophagitis presence not specified Qualified Code(s) : K21.9 - Gastro-esophageal reflux disease without esophagitis (9) Nicotine dependence Current Visit: Yes Status: Chronic Qualifiers: Nicotine product type: cigarettes Substance use status: uncomplicated Qualified Code(s): F17.210 - Nicotine dependence, cigarettes, uncomplicated - Follow-up Referral Minutes to complete discharge: 20 - AMA Did Patient Leave Against Medical Advice: No Additional Comments: courtesy Rx for Suboxone 8mg/2mg sl tid for 7 days electronically sent to [place] pharmacy for order picker/assembler. Pt to follow up with his Suboxone [id number] on 04/25/19.
[2019-04-22] MEDS: SERTRALINE HCL 50 MG TABLET (FP) PO SCH (10:26)
[2019-04-22] MEDS: DIVALPROEX SODIUM 500 MG TABLET E.C. PO SCH (10:26)
[2019-04-22] MEDS: PRENATAL VITAMINS W/ FOLIC ACID TABLET (FP) PO SCH (10:26)
[2019-04-22] MEDS: BACITRACIN 15 GM TUBE TOPICAL OINTMENT TP SCH (10:26)
[2019-04-22] MEDS: TOLNAFTATE 1% CREAM 15 GM TUBE TP SCH (10:27)
== END 2019-04-22 13:00 | disposition home or self-care (01) | DRG 772 ==
LOC: YASAS 17:51 → Y5N 18:35
PROVIDERS: ADMIT Neuromusculoskeletal Medicine & OMM; ATTEND Neuromusculoskeletal Medicine & OMM
PROC: HZ42ZZZ Group Counseling for Substance Abuse Treatment, Cognitive-Behavioral (ICD-10-PCS; principal; 2019-04-16)
DX: F10.20 Alcohol dependence, uncomplicated (principal); F11.20 Opioid dependence, uncomplicated; F14.20 Cocaine dependence, uncomplicated; F12.20 Cannabis dependence, uncomplicated; F17.210 Nicotine dependence, cigarettes, uncomplicated; F42.4 Excoriation (skin-picking) disorder; F25.9 Schizoaffective disorder, unspecified; F19.24 Other psychoactive substance dependence with psychoactive substance-induced mood disorder; F19.282 Other psychoactive substance dependence with psychoactive substance-induced sleep disorder; K21.9 Gastro-esophageal reflux disease without esophagitis; M19.90 Unspecified osteoarthritis, unspecified site; R21 Rash and other nonspecific skin eruption; L98.8 Other specified disorders of the skin and subcutaneous tissue